=== PATIENT | male | born 1945 | race African-American/Black ===

== ENCOUNTER 2018-09-15 18:40 | Inpatient (IN) ==
[2018-09-15] MEDS ORDERED: NS 1,000 ML IV ONE ×2 (19:12→21:36)
--- NOTE | 2018-09-15 19:39 | Diag Imaging Result Doc PS360 ---
EXAM: CHEST-1 VIEW 09/15/2018 HISTORY: weakness TECHNIQUE: AP portable upright at 1925 COMMENT: There is diffuse sclerosis involving most of the regional skeleton. The heart size and pulmonary vascularity are within normal limits. There is likely parenchymal pulmonary metastases. There are no previous chest radiographs available for comparison. 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 Electronically signed by Glenn Marte 09/15/2018 7:36 PM
[2018-09-15 20:19] LABS: BASO# 0.02 X1000 (0.0-0.2); BASO% 0.2 % (0.0-0.8); EOS# 0.01 X1000 (0.0-0.7); EOS% 0.1 % (0.0-10.0); HEMATOCRIT 28.6 % (42.0-52.0); LYMPH# 1.26 X1000 (1.2-3.4); LYMPH% 12.4 % (20.5-51.1); MCH 26.6 PG (27-31); MCHC 31.5 g/dL (33-37); MCV 84.6 FL (81-99); MONO# 0.38 X1000 (0.11-0.59); MONO% 3.7 % (1.7-9.3); NEUT# 8.27 X1000 (1.4-6.5); NEUT% 81.6 % (42.2-75.2); PLT 65 X1000 (130-400); RBC 3.38 XMIL (4.7-6.1); RDW 21.4 % (11.5-14.5); WBC 10.14 X1000 (4.8-10.8)
[2018-09-15 20:50] LABS: ALB/GLOB RATIO 1.2; ALBUMIN 3.5 g/dL (3.5-5.0); CREATININE 3.3 mg/dL (0.7-1.2); POTASSIUM 5.5 mmol/L (3.5-5.1); TOTAL BILIRUBIN 0.62 mg/dL (0.20-1.00); TOTAL PROTEIN 6.4 g/dL (6.3-8.3)
[2018-09-15] MEDS ORDERED: ROCEPHIN 2 GM in NS 50 ML IV ONE (21:20)
[2018-09-15] MEDS ORDERED: TYLENOL PO PRN (21:37)
--- NOTE | 2018-09-15 21:41 | PROVIDER DOCUMENTATION ---
This chart was entered by Yuliya Fay Scribe, acting as scribe for Marissa Armas DO. HPI-General Adult - General Chief Complaint: Weakness Stated Complaint: AMS Time Seen by Provider: 09/15/18 19:04 Source: patient Allergies/Adverse Reactions: Patient Allergies Allergy/AdvReac Type Severity Reaction Status Date / Time No Known Allergies Allergy Verified 12/26/17 16:04 Home Medications: Home Medication List Medication Instructions Recorded Confirmed Last Taken Type NK [No Home Medications] 12/26/17 12/26/17 Unknown History - History of Present Illness -Gen Adult Nature of Presenting Problems: pt is a 73 yr old male presenting via EMS with 2 day complaint of increased weakness, dyspnea on exertion, shortness of breath, right leg pain and occasional diarrhea. , pt denies fever/chills, nausea, vomiting. He is very weak and obviously dehydrated. He is only able to provide a limited history. Location of Pain/Injury: reports: lower extremity (right leg) Pain Radiation: reports: no radiation Quality of Pain: reports: aching Severity: reports: moderate Onset/Duration: reports: 2 days ago Timing: reports: still present Context/Activities at Onset: reports: rest Modifying Factors: improves with: movement (worsens symptoms) Associated Symptoms: reports: cough, diarrhea, fatigue, shortness of breath, weakness. denies: back/neck pain, chest pain, fever/chills, joint pain, nausea , vomiting Similar Symptoms Previously?: Yes Recently seen or treated by another doctor?: Yes Review of Systems - Adult - REVIEW OF SYSTEMS - ADULT ROS:: limited per condition Constitutional: reports: fatique. denies: fever Eyes: reports: no symptoms reported Ears, Nose, Mouth & Throat: reports: no symptoms reported Cardiovascular: denies: chest pain, palpitations, syncope Respiratory: reports: cough, dyspnea on exertion, shortness of breath Gastrointestinal: denies: diarrhea, nausea, vomiting Genitourinary: reports: no symptoms reported Musculoskeletal: reports: bone pain (right leg) Integumentary: reports: no symptoms reported Neurological: denies: dizziness/vertigo, headache/migraines Psychiatric: reports: no symptoms reported Endocrine: reports: no symptoms reported Hematologic/Lymphatic: reports: no symptoms reported Allergic/Immunologic: reports: no symptoms reported All Other Systems: Reviewed and Negative Past History - Adult - PAST MEDICAL HISTORY-ADULT Review of Records: reports: Old Records Reviewed, Nursing Assessment Review, Medications Reviewed, Social history reviewed & non-contributory. Major Childhood Illnesses: reports: denies history Cardiovascular: reports: denies history Respiratory: reports: denies history Gastrointestinal: reports: denies history Obstetrical/Gynecological: reports: denies history Genitourinary: reports: prostate cancer, other (percutaneous nephrostomy) Musculoskeletal: reports: denies history Neurological: reports: denies history Psychiatric: reports: denies history Endocrine/Immune: reports: denies history Other Conditions: reports: denies history - PRIOR SURGERIES/PROCEDURES Surgical/Procedure History: reports: other (percutaneous nephrostomy) - IMMUNIZATION STATUS Childhood Immunizations: See Nurse Assessment Flu Vaccine: See Nurse Assessment - FAMILY HISTORY Family History: reviewed, not pertinent - SOCIAL HISTORY Smoking: non-smoker Substance Use: denies Living Situation: family Physical Exam-General - PHYSICAL EXAM-ADULT Initial Vital Signs Reviewed: Yes - CONSTITUTIONAL General Appearance: thin, lethargic, slow to respond - EYES Eyes: PERRL/EOMI - HEAD, EARS, NOSE, MOUTH & THROAT HENMT: normocephalic/atraumatic, other (dry oral mucosa, dry cracked lips) - NECK Neck: non-tender, full range of motion, supple, normal inspection - RESPIRATORY Respiratory: chest non-tender, lungs clear, normal breath sounds, other (Poor inspiratory effort.) - CARDIOVASCULAR Cardiovascular: normal peripheral pulses, regular rate, rhythm - GASTROINTESTINAL (ABDOMEN) Abdominal Exam: normal bowel sounds, non tender, soft - LYMPHATIC Lymphatic: no adenopathy - MUSCULOSKELETAL Back Exam: normal inspection, no CVA tenderness, no vertebral tenderness Extremity: normal range of motion, non-tender - SKIN Integumentary: normal color, normal turgor, warm/dry - NEUROLOGIC Neurologic: grossly normal, no motor/sensory deficits Progress - PLAN OF CARE/RESULTS Progress/Plan/Lab Results: Vital Signs - 8 hr 09/15/18 18:54 Pulse Rate 86 Respiratory Rate 18 Blood Pressure 86/47 Orders Category Date Time Status CHEST-1 VIEW [RAD] Stat Exams 09/15/18 19:10 Ordered BLOOD CULTURE [BLDCUL] Stat Lab 09/15/18 19:10 Uncollected CBC WITH ELECTRONIC DIFF [HEME] Stat Lab 09/15/18 19:10 Uncollected COMPREHENSIVE METABOLIC PANEL [CHEM] Stat Lab 09/15/18 19:10 Uncollected LACTATE, PLASMA [CHEM] Stat Lab 09/15/18 19:10 Uncollected TROPONIN T Stat Lab 09/15/18 19:10 Uncollected 0.9% Sodium Chloride Inj [Ns] 1,000 ml Med 09/15/18 19:12 Active IV 999 mls/hr Clinically stable here. He remained dry appearing and slow to speak. He has obvious metastatic disease in his chest and back as well. His lactate is elevated, which could be secondary to sepsis or hypoperfusion. He was given IV NS boluses and treated empirically with Ceftriaxone. He has a known history of metastatic prostate CA. He is unable to tell me his current treatment regimen. Result Diagrams: 09/15/18 19:54 09/15/18 19:54 - EKG 1 Time of EKG reading by physician:: 19:09 EKG Read and Signed by:: Marissa Armas EKG Interpretation (*Must complete 3 of following elements*): Abnormal ( junctional ST depression, probably normal) Rate: 82 Rhythm: nsr Beatty: normal QRS: normal ND Interval: normal ST Wave: depressed (junctional-probably normal) - XRAY 1 XRAY Study: Chest Impression: Abnormal ( Signed EXAM: CHEST-1 VIEW 09/15/2018 HISTORY: weakness TECHNIQUE: AP portable upright at 1925 COMMENT: There is diffuse sclerosis involving most of the regional skeleton. The heart size and pulmonary vascularity are within normal limits. There is likely parenchymal pulmonary metastases. There are no previous chest radiographs available for comparison. 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 Electronically signed by Glenn Marte 09/15/2018 7:36 PM 01/27 Interpreting Physician: Glenn Marte MD Dictated Date/Time: 09/15/181932 cc: Marissa Armas DO; Richard Boyd MD) Departure - Departure Date of Disposition Decision: 09/15/18 Time of Disposition Decision: 21:40 DIAGNOSIS: Dehydration, Metastatic malignant neoplasm to prostate Disposition: ADMITTED INPATIENT 09 Certified Medical Emergency: Emergent Condition: Fair Referrals and Follow-Ups: Tom Zheng MD [ACTIVE STAFF PHYSICIAN] - - Critical Care Note This patient required my direct & personal management of CC.: No Attestation - Physician/ RIP Attestation The physician spent face to face time with patient:: Yes Advanced Practice Provider documentation review:: Supervising physician onsite and consulted in the evaluation and care of this patient. The physician did have a face to face encounter with the patient. This chart was documented by the indicated scribe, (Yuliya Fay, Johan) and accurately reflects the services I performed and decisions made by me, Marissa Armas, , as attested by the provider's signature.
[2018-09-15] MEDS: MORPHINE IV PRN (22:27)
[2018-09-15] MEDS: ZOFRAN IV PRN (22:28)
--- NOTE | 2018-09-15 23:31 | HISTORY AND PHYSICAL ---
CHIEF COMPLAINT: Weakness. HISTORY OF PRESENT ILLNESS: This 73-year-old black male was being visited by his relatives who had come in from [place]. They stated that he was very weak and was laying in an awkward position, so they called 911 to have him transported here. Apparently, the patient has a history dating back to December 2017 of extensive stage IV metastatic prostate cancer with considerable bony involvement. The patient and the family are very poor historians. In fact, when I told the family members that he had metastatic prostate cancer, that was new information for them. The patient himself was unable to really put together succinct answers to any questions. He states that he has been weak for "a few days ." He states that he has been eating and drinking normally but the obvious physical condition of the patient as well as his laboratories would indicate otherwise. PAST MEDICAL HISTORY: 1. Metastatic prostate cancer. 2. History of nephrostomy placed unknown date in [place] according to the patient, he did not know the doctor's name who performed the procedure. ALLERGIES: No known drug allergies. SOCIAL HISTORY: The patient is a nonsmoker. He does not use alcohol or illicit drugs. He apparently lives alone. FAMILY HISTORY: Noncontributory. REVIEW OF SYSTEMS: Patient denies any cough, wheezing, or shortness of breath. He has continued mid and upper back pain which is exacerbated by positional changes. He states he has been eating, drinking well. This is questionable according to the family. The remainder of the review of systems was negative. PHYSICAL EXAMINATION: GENERAL: He is a pale black male who is in no acute distress. He is emaciated and cachectic. He seems uncomfortable in the bed and cannot get into a position which alleviates his pain. Constantly asks for adjustment to his position. HEENT: Sclerae are anicteric. Oral mucosa is dry but not parched, he is slightly pale, skin color is overall pale. LUNGS: Clear to auscultation. CARDIOVASCULAR: Was 80 at the time of my examination. ABDOMEN: Was scaphoid. Bowel sounds were present. EXTREMITIES: Significant muscle loss. NEUROPSYCH: I think the patient has some hearing difficulty but is not severe. The remainder of cranial nerves are intact. The patient has blood in nephrostomy tubes. LABORATORIES: White cell count 10.1, hematocrit 28.6, platelet count 65,000. CO2 was 13, BUN 175, creatinine 3.3, glucose 180, alkaline phosphatase was 337. Plasma lactate was elevated. ASSESSMENT AND PLAN: 1. The patient has stage IV cancer with obvious signs of dehydration including hypotension, tachycardia, low carbon dioxide, elevated BUN and creatinine. His elevated BUN and creatinine could also be due to the nephrostomy tubes and obstructive symptomatology. 2. The patient be admitted to the hospital and hydrated aggressively. We will recheck laboratory parameters in the morning. 3. We will check fingerstick blood sugars on the patient and give him a regular diet for the time being. 4. I did my best to try and explain the gravity of the situation to the patient but he insisted that if he needed a "breathing machine," that if that was his only option, he should take it. I therefore assume that he did not want to be made do not resuscitate and was really not cognizant of the ultimate outcome of this level of his particular disease state. 5. Entire conversation, exam took place in the emergency room in the presence of the patient's brother and [id number]. They are in agreement with how we are going to proceed. 6. Consultations for nephrology and oncology can be considered by the management team on Monday or Monday. cc: Hunter Carlson MD
[2018-09-16] MEDS: MORPHINE IV PRN ×2 (00:41→16:40)
[2018-09-16] MEDS: NS 1,000 ML IV SCH ×3 (01:00→13:45)
[2018-09-16 01:18] LABS: URINE SOURCE CATH
[2018-09-16 01:44] LABS: BILIRUBIN URINE NEGATIVE (NEGATIVE); BLOOD URINE LARGE (NEGATIVE); COLOR BROWN; GLUCOSE URINE NEGATIVE (NEGATIVE); KETONE URINE NEGATIVE (NEGATIVE); LEUKOCYTES URINE LARGE (NEGATIVE); NITRITE URINE NEGATIVE (NEGATIVE); PROTEIN URINE 300 mg/dL (NEGATIVE); SP GRAVITY URINE 1.007; TURBIDITY URINE TURBID (CLEAR); UR EPITHELIAL CELLS <10 /HPF (<10); URINE BACTERIA 3+ /HPF; URINE CASTS NONE SEEN; URINE CRYSTALS NONE SEEN; URINE RBC TNTC /HPF (<10); URINE SMALL ROUND CELLS NONE SEEN; URINE WBC TNTC /HPF (<10); URINE YEAST NONE SEEN; UROBILINOGEN URINE NORMAL (NORMAL)
[2018-09-16] MEDS ORDERED: CALMOSEPTINE OINTMENT TOP PRN (02:13)
[2018-09-16] MEDS ORDERED: SOLU-CORTEF IV ONE (05:09)
[2018-09-16] MEDS ORDERED: NS 1,000 ML IV ONE ×2 (05:11→05:15)
[2018-09-16 06:06] LABS: ALLEN TEST YES; BE -11.5 mmoll (-3.0-3.0); BLOOD TYPE ARTERIAL; METHB 0.3 % (0.0-1.5); O2(CT) 12.9 mL/dL (15.0-23.0); O2HB 97.7 % (95.0-99.0); PCO2(98.6) 30 mmHg (35-45); PO2(98.6) 166 mmHg (60-100); SAMPLE BLOOD; SAO2 100.2 % (95.0-100.0); THB 9.1 g/dL (11.5-17.4); pH(98.6) 7.28 (7.35-7.45)
[2018-09-16 06:07] LABS: MODALITY NRB
[2018-09-16 06:11] LABS: BASO# 0.01 X1000 (0.0-0.2); BASO% 0.1 % (0.0-0.8); HEMATOCRIT 24.9 % (42.0-52.0); HEMOGLOBIN 7.8 g/dL (14.0-18.0); LYMPH# 1.54 X1000 (1.2-3.4); LYMPH% 17.4 % (20.5-51.1); MCH 27.3 PG (27-31); MCHC 31.3 g/dL (33-37); MCV 87.1 FL (81-99); MONO# 0.38 X1000 (0.11-0.59); MONO% 4.3 % (1.7-9.3); NEUT# 6.93 X1000 (1.4-6.5); NEUT% 78.2 % (42.2-75.2); PLT 43 X1000 (130-400); RBC 2.86 XMIL (4.7-6.1); RDW 21.5 % (11.5-14.5); WBC 8.86 X1000 (4.8-10.8)
[2018-09-16 06:39] LABS: ALB/GLOB RATIO 1.1; ALBUMIN 2.9 g/dL (3.5-5.0); CALCIUM 8.2 mg/dL (8.8-10.2); CREATININE 3.1 mg/dL (0.7-1.2); MAGNESIUM 2.6 mg/dL (1.5-2.7); POTASSIUM 5.6 mmol/L (3.5-5.1); TOTAL BILIRUBIN 0.61 mg/dL (0.20-1.00); TOTAL PROTEIN 5.6 g/dL (6.3-8.3)
[2018-09-16] MEDS: LEVOPHED 8 MG in D5 1/2 NS 250 ML IV SCH ×2 (08:36→17:25)
[2018-09-16] MEDS ORDERED: ZITHROMAX 500 MG/NS 500 MG/250 ML IVPB IV SCH (09:00)
[2018-09-16 12:23] LABS: HEMATOCRIT 23.8 % (42.0-52.0); HEMOGLOBIN 7.3 g/dL (14.0-18.0)
[2018-09-16] MEDS: ZOFRAN IV PRN (16:45)
[2018-09-16 17:09] LABS: HEMATOCRIT 26.3 % (42.0-52.0); HEMOGLOBIN 8.2 g/dL (14.0-18.0)
[2018-09-16] MEDS ORDERED: MORPHINE IV PRN (18:30)
[2018-09-16 20:44] VITALS: BP 83/48
[2018-09-16] MEDS ORDERED: ROCEPHIN 1 GM in NS 50 ML IV SCH (21:00)
[2018-09-16 21:17] LABS: HEMATOCRIT 30.8 % (42.0-52.0); HEMOGLOBIN 9.4 g/dL (14.0-18.0)
--- NOTE | 2018-09-16 21:28 | Diag Imaging Result Doc PS360 ---
EXAM: CT THORAX/ABD/PELVIS W/O CON 09/16/2018 HISTORY: hypotension, lung masses vs pneumonia, ? abd mass TECHNIQUE: This exam was performed using automated exposure control, adjustment of mA or kV according to patient size, and/or use of iterative reconstruction technique. COMMENT: There is diffuse osteoblastic metastatic disease throughout the visualized skeleton. There are expansile mass is in multiple ribs. There is involvement of the entire thoracic spine with a mixture of lytic and sclerotic disease in T9. This was also present at the time of the previous examination of 12/26/2017. There are bilateral pleural effusions. There is ill-defined opacity in the right lower lobe which may be due to pneumonia. There is also groundglass opacity posteriorly in the right upper lobe and a pleural-based nodular opacity is present laterally in the right upper lobe on image 26. There is some motion artifact. There are subcarinal and left hilar calcified nodes. ABDOMEN: There is a lucency in the liver with a CT density of less than 4 Hounsfield units most likely representing a cyst. This measures 16 mm in diameter and is seen best on image 30. There are bilateral percutaneous nephrostomies. There appears to be some hydronephrosis on the right despite the presence of the drain. The gallbladder is without evidence of calcified stones. The spleen is not enlarged. There may be some nodular enlargement of the left adrenal gland. This was also apparently present at the time of the previous study of 12/26/2017. There is marked gaseous dilatation of the colon as well as some fecal debris in both the ascending and descending colon. There is also fluid in the small bowel. The aorta is not distended. There is massive adenopathy on the right side at the level of the iliac crest measuring at least 8.4 cm in the axial plane. While there are no previous abdominal studies available for comparison compared with the lumbar spine study of 12/26/2017 this was apparently at least partially present previously. There is enlargement of the prostate. The urinary bladder is nondistended but is thickened in appearance. There is extensive osteoblastic disease in the bony pelvis and visualized portions of the femora. There is fecal impaction in the rectum. The possibility of stercoral proctitis cannot be excluded. IMPRESSION: Extensive osseous metastatic disease. Bronchopneumonia and/or parenchymal metastatic disease. Adenopathy as described. Constipation with fecal impaction. Electronically signed by Glenn Marte 09/16/2018 9:24 PM
--- NOTE | 2018-09-17 05:22 | PROGRESS NOTE ---
DATE: 09/16/2018 INTERVAL HISTORY: The patient had onset of significant hypotension overnight, and was moved to the ER as the ICU was full this morning. He was given IV fluid bolus with continued hypotension. Therefore, we started him on Levophed this morning. Blood pressure improved with Levophed administration, though he has not had any room to wean so far. He continues to require oxygen on BiPAP at the time of my exam. Most likely source of shock is septic shock related to urinary tract infection. However, the x-ray with multiple opacities may represent metastatic cancer, but can't completely rule out pneumonia. Patient started on empiric antibiotics with Rocephin and azithromycin for UTI and possible community-acquired pneumonia. CT chest, abdomen, and pelvis to further clarify is pending. Initial lactic acid quite elevated, but after fluid bolus and initiation of Levophed, repeat lactate does appear to have trended down. Troponin is trending up so cardiology has been consulted. He is also noted to have bloody urine coming from both nephrostomy tubes and has been noted to have bright red blood per rectum in small amounts. At the time of my exam, patient was somnolent but easily arousable following most commands, but did appear somewhat confused. Oriented to person only. REVIEW OF SYSTEMS: The patient reports diffuse achiness and dyspnea. Otherwise, 12 point Review of Systems negative except as per interval history. LABORATORY: WBC 8.8, initial hemoglobin 7.8, repeat 7.3. Initial hematocrit 24.9, repeat 23.8, and platelets 43,000. ABG pH 7.28, pCO2 30, PO2 166, O2 saturation 100 on non-rebreather. Sodium 142, potassium 5.6, chloride 106, bicarb 15, BUN 161, creatinine 3.1, glucose 111, AST 55, ALT 15, and alkaline phosphatase 300. Initial troponin 0.098. Repeat troponin 0.179. Total protein 5.6, albumin 2.9, pre-albumin 8, initial lactate 5.2. Repeat lactate 2.1. Urinalysis with too numerous to count white cells, too numerous to count red cells, no epithelial cells, 3+ bacteria, nitrite negative, large leukocyte. IMAGING: Chest x-ray with diffuse osseous osteoblastic metastasis and pleural and parenchymal involvement. VITAL SIGNS: T-max 97.6 degrees, T minimum 95.8, pulse 96, respirations 22, blood pressure 99/55, and O2 saturation 100% on BiPAP. PHYSICAL EXAMINATION: General: No acute distress. Vitals: As above. HEENT: Normocephalic, atraumatic. Cachexia noted with significant muscle wasting, somewhat drowsy, but arousable. He will follow simple commands, but does appear at least mildly confused. Cardiovascular: Regular rate and rhythm. No rubs noted. 2 out of 6 right upper sternal border murmur noted. Pulmonary: Scattered rhonchi and mildly decreased air entry throughout, but largely clear to auscultation. Abdomen: Soft, slightly distended. Bowel sounds significantly decreased. Nontender. Bilateral nephrostomy tubes noted with bloody urine, small amount of bright red blood from the anus noted. Extremities: Peripheral pulses decreased but present. No clubbing, cyanosis, or edema. Neurologic: Cranial nerves grossly intact globally weak, but no focal deficits identified. Psychiatric: Normal mood and affect, drowsy, but easily arousable. Following simple commands and responding to most questions but requires repeated prompting, and does appear at least mildly confused. Oriented to person but not place or time. ASSESSMENT AND PLAN: 1. Septic shock, UTI, possible pneumonia. Patient with decompensation overnight requiring Levophed as above. Urinalysis suggestive of UTI. Chest x-ray with obvious metastatic disease, but unable to rule out pneumonia. Covering with Rocephin and azithromycin for UTI and possible community-acquired pneumonia pending CT for further evaluation. Continue to monitor closely in the ICU setting. Continue aggressive fluid resuscitation. 2. Likely LIZZETH. A patient with significantly elevated creatinine up to 3.3. The only previous creatinine for comparison was December of 2017 which was 1.2. However, the patient had bilateral nephrostomy tubes placed at outside facility so uncertain what his kidney function has been in the interim. Obtaining CT as above to assess for intra-abdominal aspect of his malignancy, to assess the kidneys and look for any other source of infection. Depending on results of CT, may need nephrology or urology consultation. 3. Hyperkalemia, mildly elevated potassium. Stable. Patient NPO and hydrating aggressively. We will defer Kayexalate for now until CT abdomen and pelvis is available to rule out obstruction given mild to moderate abdominal distention. Follow labs and will consider further intervention if hyperkalemia worsens. 4. Anemia and thrombocytopenia. The blood counts trended down somewhat this morning. Repeat very slightly decreased but less than previous. Given elevated troponin, we will go ahead and transfuse 2 units. Likely combined anemia of chronic disease and acute blood loss anemia related to GI bleeding and hematuria. We will consider GI consultation if bleeding becomes more pronounced or when patient is more stable. Platelets borderline for need for transfusion given amount of bleeding. Repeat CBC pending to assess the need for further transfusion. If platelets decreased below 40, then we will likely need to transfuse platelets as well. 5. Elevated troponin. Initial troponin 0.098. Repeat troponin 0.179. Favor demand ischemia related to critical illness, but will ask Cardiology to see. 6. Widely metastatic prostate cancer. The patient reportedly with widely metastatic prostate cancer. Appears to have significant thoracic lesions. Imaging pending to assess the extent of thoracic lesions, and to look for abdominal involvement. Depending on results of CT, prognosis is likely poor. We will likely ask for oncology opinion once patient is more stable. 7. Deep vein thrombosis prophylaxis. SCD's given. Bleeding. 8. Disposition. The patient is critically ill, on pressors with sepsis. Also, with bleeding and widely metastatic cancer. Continue to monitor closely in ICU. Prognosis guarded at best. Family not currently available, but based on earlier documented discussion family currently wishes for him to be full code. Prior discussion with the patient, patient wishes to be a full code. TIME SPENT: Greater than 40 minute of critical care time spent available to patient, examining patient, reviewing labs, and making medical decisions.
--- NOTE | 2018-09-17 10:14 | EKG Report ---
Test Performed on : 09/15/2018 7:09:28 PM Test Reason : ED. NO EKG ORDER FOR MUSE Blood Pressure : / mmHG Vent. Rate : 082 BPM Atrial Rate : 082 BPM P-R Int : 124 ms QRS Dur : 076 ms QT Int : 410 ms P-R-T Axes : 106 020 033 degrees QTc Int : 479 ms Normal sinus rhythm. Junctional ST depression, probably normal Borderline ECG When compared with ECG of 26-DEC-2017 14:27, No significant change was found Unconfirmed Result
--- NOTE | 2018-09-17 11:42 | PROGRESS NOTE ---
DATE: 09/16/2018 DATE AND TIME OF PROGRESS NOTE: 09/16/2018 at respirations at 21:49, and that will be his time of . PRIMARY CARE PHYSICIAN: Richard Boyd MD ATTENDING PROVIDER: DR. Neville Flores Code blue was called when the patient went into PEA. He received several rounds of CPR, with ACLS medications given and was intubated. The patients brother was spoken to and told that the patient was in and out of a pulsatile rhythm. The family decided that with the patients advanced Cancer that the code should be stopped and the patient made a DNR level 1. The ET tube was pulled and the patient at 21:49. Dictated by DEBORAH Wheatley for Garrett Pereyra MD cc: MD Neville Bauer MD Harley C. Bailey, CRNP Olakunle P. Akinsoto, MD I spoke with the brother who had just left the hospital 2 hours ago personally and he wanted me to terminate CPR. MTDKaylah
--- NOTE | 2018-09-24 20:22 | DISCHARGE SUMMARY ---
ADMISSION DATE: 09/15/2018 DISCHARGE DATE: 09/16/2018 IMAGING: CT chest, abdomen, and pelvis with extensive osseous metastatic disease, bronchopneumonia versus parenchymal metastatic disease, significant adenopathy, and constipation. HOSPITAL COURSE: This 73-year-old black male presented initially with complaints of weakness. He was found by his relatives. He is known to have extensive late stage metastatic prostate cancer with bony involvement. On initial chest x-ray there was also concern for lung metastasis. He was significantly dehydrated with acute kidney injury. He was noted to have bilateral nephrostomy tubes without a clear history as to why. He was also thought to be in septic shock, since he had hypotension that did not respond to initial fluid boluses and had to be placed on Levophed. Based on initial evaluation, the most likely source of septic shock was thought to be UTI. There was also concern for pneumonia. Multiple opacities on x-ray thought to be related to metastatic disease made it difficult to fully assess lungs. CT chest, abdomen, and pelvis was obtained as above, which did show significant bony disease as well as infiltrates in the lungs, which were favored to represent parenchymal metastatic disease, although pneumonia was not entirely ruled out. He was started on broad spectrum antibiotics with Rocephin and azithromycin with UTI and possible community acquired pneumonia. He was hydrated aggressively. Despite aggressive care, the patient experienced a cardiac arrest late on 09/16/2018. CPR was initiated but on discussion with family they elected to make patient Do Not Resuscitate and cease resuscitation efforts. The patient was subsequently extubated and at 2149 on 09/16/2018. DISCHARGE DIET: None, patient . DISCHARGE MEDICATIONS: None, patient . FOLLOWUP AND PLAN: None, patient . Release body to home when family is ready. EXAM: Patient .
== END 2018-09-16 21:49 | disposition expired | DRG 871 ==
LOC: SUPCPDRO → ED 18:40 → 4N 23:53 → SUATTDRO 23:53 → EDIPHOLD 09-16 08:40 → ICU 09-16 20:38
PROVIDERS: ATTEND Internal Medicine
CPT/HCPCS: 36415; 36430; 71010; 71045; 71250; 74176; 80053; 81001; 82805; 82948; 83605; 83735; 84134; 84484; 85014; 85018; 85025; 86850; 86900; 86901; 86920; 86945; 87040; 87077; 87088; 87186; 87449; 93005; 96361; 96365; 96366; 99285; J0456; J0696; J1720; J2270; J2405; J7030; P9016; XXXXX